=== PATIENT | male | born 1940 | race Caucasian/White ===

== ENCOUNTER → 2020-11-17 13:37 | Outpatient (CLI) | payer MEDICARE, OTHER, SELFPAY ==
--- NOTE | 2020-11-17 | DI.CT.S_ITS ---
PROCEDURE: CT LUMBAR SPINE WO CON INDICATIONS: Spinal stenosis, lumbar region TECHNIQUE: Noncontrast 3 mm thick sections acquired from the T12 level to the sacrum. Sagittal and coronal reformats were constructed. For radiation dose reduction, the following was used: automated exposure control. COMPARISON: Amanda Kwon, , MR LUMBAR SPINE W&WO CON, 06/18/2015, 15:18. FINDINGS: Image quality: Excellent. Bones: There are interbody spacer grafts at L1-2, L2-3 and L3-4 with discectomy and fusion with graft incorporation at L4-5. Posterior vee and screw instrumentation at L3-4 is present without hardware failure or loosening. L5 decompressive laminectomy present. T12-L1: Severe disc space narrowing with endplate sclerosis and posterior osteophyte is associated with hypertrophic facet joints resulting in moderate central and severe left foraminal stenosis. Moderate right foraminal stenosis present. L1-L2: Discectomy and fusion with spacer grafts in place. Posterior osteophyte results in moderate central stenosis. Hypertrophic facet joints result in moderate right and left foraminal stenosis. L2-L3: Discectomy and fusion with spacer grafts in place. Posterior osteophyte with hypertrophic facet joints and ligamentum flavum laxity resulting in moderate central stenosis. Moderate bilateral foraminal stenosis noted. L3-L4: Discectomy and fusion with graft in place. Persistent lucency through the disc space is noted. In posterior osteophyte and hypertrophic facet joints result in moderate central and severe left foraminal stenosis. Moderate right foraminal stenosis present. L4-L5: There has been discectomy and fusion with good graft incorporation. Posterior decompressive laminectomy noted. Hypertrophic facet joints with ankylosis present with mild to moderate bilateral foraminal stenosis. L5-S1: Disc space narrowing with vacuum disc phenomena and circumferential disc bulge present. Small amount of vacuum disc air is present in the right lateral recess as well. L5 decompressive laminectomy is noted. Central canal is widely patent. Hypertrophic facet joints present with mild bilateral foraminal stenosis. Soft tissues: No retroperitoneal masses or hematomas. Visualized aorta is normal in caliber. Retroperitoneal surgical clips present. IMPRESSION: 1. Discectomy infusion L1-2 through L4-5. Persistent lucency present at the L3-4 disc space. L3-4 vee and screw instrumentation. No evidence of hardware failure or loosening. 2. Multilevel degenerative disc disease and arthropathy results in varying degrees of central and foraminal stenosis as above Dictated by: Ej Mendes M.D. on 11/17/2020 at 15:41 Approved by: Ej Mendes M.D. on 11/17/2020 at 16:24
== END ==
PROVIDERS: Referring Provider Orthopaedic Surgery Orthopaedic Surgery of the Spine; Visit Provider Orthopaedic Surgery Orthopaedic Surgery of the Spine
DX: M48.062 Spinal stenosis, lumbar region with neurogenic claudication (principal); M51.36 Other intervertebral disc degeneration, lumbar region; M51.37 Other intervertebral disc degeneration, lumbosacral region; M47.816 Spondylosis without myelopathy or radiculopathy, lumbar region; M48.061 Spinal stenosis, lumbar region without neurogenic claudication; M48.07 Spinal stenosis, lumbosacral region; Z98.1 Arthrodesis status; Z20.822 Contact with and (suspected) exposure to COVID-19
CPT/HCPCS: 72131; 87635; C9803

== ENCOUNTER → 2020-11-17 14:07 | Outpatient (CLI) | payer MEDICARE, OTHER, SELFPAY ==
[2020-11-17 15:23] LABS: COVID19 -Nasal RAPID Negative (Negative)
== END ==
PROVIDERS: Visit Provider Physician Assistant
DX: Z20.822 Contact with and (suspected) exposure to COVID-19 (principal)
CPT/HCPCS: 87635

== ENCOUNTER 2020-11-18 11:42 | Inpatient (IN) | payer MEDICARE, OTHER, SELFPAY ==
[2020-11-10 13:52] VITALS: BMI 34.2
[2020-11-18] VITALS (11 sets, daily range): BP systolic 123–157; BP diastolic 66–98; PULSE 79–94; RESP 14–18; TEMP 36.3–36.8; O2SAT 90–98; BMI 33.2
--- NOTE | 2020-11-18 | DI.RAD.S_ITS ---
PROCEDURE: XR LUMBAR SPINE 2-3V INDICATIONS: L5-S1 TLIF TECHNIQUE: 2 views of the lumbar spine were acquired. COMPARISON: [facility], CT, CT LUMBAR SPINE WITHOUT CONTRAST, 05/05/2020, 13:05. [facility], CT, CT LUMBAR SPINE WO CON, 11/17/2020, 14:46. FINDINGS: Bones: Postoperative evaluation showing new placement of L5-S1 bilateral transverse pedicle screws and vertical fixation rods. Previously documented L3-L4 transverse pedicle screws set at the inferior aspect of the prior fixation is included on the field of view lateral projection, and 1 of the 2 transverse pedicle screws at this lower set of original fixation devices is fractured. On the frontal projection the transverse pedicle screws set of the original fixation devices can be seen but the exact screw which is fractured, right versus left, is not identified. The new L5-S1 transverse pedicle screws and vertical fixation rods are well visualized. There is an old set of vertical fixation rods are radiolucent. Soft tissues: Overlying bowel gas pattern is normal. No suspicious soft tissue calcifications. IMPRESSION: The new set of L5-S1 fixation devices appear normal. The original set of L3-L4 fixation devices were inter connected by 2 vertical radiolucent fixation rods. One of the 2 L4 original transverse pedicle screws is seen to be fractured on the lateral projection but this cannot be identified in terms of laterality on the frontal projection. On review of the CT dated 11/17/20 the L3 transverse pedicle screw on the right appears to represent the site of fracture. Dictated by: Timothy Simon M.D. on 11/19/2020 at 10:37 Approved by: Timothy Simon M.D. on 11/19/2020 at 10:55
[2020-11-18] MEDS: LACTATED RINGERS 1,000 ML 42 ML IV (12:19)
[2020-11-18] MEDS: GABAPENTIN 300 MG CAPSULE PO ×2 (12:38→21:19)
[2020-11-18] MEDS: ACETAMINOPHEN 325 MG TABLET 975 MG PO (12:38)
--- NOTE | 2020-11-18 13:16 | PM.PREOP ---
Pre-operative Note COVID-19 COVID-19 status: Negative Result date/Date tested (Pos, Neg/Pending): 11/16/20 Interval Note History & Physical reviewed/Exam performed by Physician: Yes Changes to H&P: No
[2020-11-18 13:30] LABS: Bacteria Urine None Seen; WBC Urine None Seen (0-5/HPF)
[2020-11-18 13:32] LABS: Appearance Urine UA CLEAR; Bilirubin Urine UA NEGATIVE (NEGATIVE); Color Urine UA YELLOW; Glucose Urine UA TRACE g/dL (Negative); Ketones Urine UA NEGATIVE (NEGATIVE); Leukocyte Esterase Urine UA NEGATIVE (NEGATIVE); Nitrite Urine UA NEGATIVE (Negative); Occult Blood Urine UA TRACE-INTACT (Negative); Protein Urine UA NEGATIVE (Negative); Specific Gravity Urine UA 1.025 (1.000-1.035); Urobilinogen Urine UA 0.2 E.U./dL (0.2)
[2020-11-18 14:02] LABS: Culture Indicated Urine Cult Not Indicated; RBC Urine 0-1/HPF (0-5/HPF)
[2020-11-18] MEDS: CEFAZOLIN 1 GM VIAL 2 GM IV ×2 (14:15→22:24)
--- NOTE | 2020-11-18 14:40 | SUR.OPER ---
Prone on spine table, head in foam head support, padded chest and pelvic supports, gel pad at knees, lower legs supported by pillows; nipples, genitalia and toes free of pressure, arms secured on foam padded arm boards at <90 degrees abduction. Tape over blanket at thigh secured to table.
[2020-11-18] MEDS: BUPIVACAINE LIPOSOME 266 MG/20 ML VIAL INJ (14:51)
[2020-11-18] MEDS: BUPIVACAINE 0.5% (PF) VIAL 30 ML INJ (14:52)
--- NOTE | 2020-11-18 17:47 | P.OP_ITS ---
Operative Date/Time/Diagnoses Date of procedure: 11/18/20 Time of procedure: 13:00 Pre-op diagnosis: 1. L5-S1 spinal stenosis with radiculopathy 2. Lumbar spondylosis with radiculopathy Post-op diagnosis: same Procedure & Clinicians Procedure: 1. L5-S1 Postero-lateral and posterior interbody fusion 2. L5-S1 interbody cage placement. 3. L5-S1 decompressive laminectomy with bilateral facetecomies 4. L5-S1 Posterior non-segmental instrumentation 5. [place] of bone marrow from iliac crest 6. Utilization of microsurgical technique and operating microscope Same procedure as scheduled: Yes Indications: Patient has been having chronic back pain and worsening lumbar radiculopathy. Patient failed multiple conservative management with worsening pain weakness and numbness in her lower extremity. Patient has been having difficulty performing activity of daily living. After discussing risks benefits of treatment options, patient elected proceed with surgery. Surgeon: David Smith Fisher Eel: Dionte Anderson Click Yes if Unassisted: No Anesthesia Type: General Operative Notes Closure Type: primary Specimen(s): none sent Prosthetic devices, grafts, tissues, transplants, or devices: Globus CREO MIS pedicle screws, Rise cage Estimated Blood Loss (mL): 50 Blood products transfused: none Procedure in detail: Patient was seen in the preoperative area. Risks and benefits of the surgery was discussed with the patient. Informed consent was obtained from the patient and placed in the chart. Surgical site was marked. Patient was taken to the operative room. General anesthesia was administered. Prophylactic antibiotic was given to the patient less than 30 min before the incision was made. Patient was placed into a prone position on the Angel table. Patient's back was then prepped and draped in the sterile fashion. Time- out was performed at this time. After patient was prepped and draped, patient's PSIS was palpated and marked bilaterally. Small 1 cm incision was made over the PSIS for placement of the reference probes. Two trocar was placed into the PSIS 1 on each side. The reference probe was attached to the trocar of the reference apparatus. At this time the C-arm imaging was used to confirm AP and lateral of L5-S1 vertebrae and merged the C-arm imaging using the [employer] robotic navigation system with the CT of the lumbar spine. After successful merging was completed and confirmed, skin marker was used to greg out the skin incision using the [employer] robotic arm. Bilateral incision was made at this time. Pre templated trajectory was used and guided using the [employer] robotic navigation system for bilateral L5-S1 pedicle screw placement. This was done by using the robotic arm to guide the high-speed bur to make a cortical entry point. Next a drill was placed also using the robotic arm and guided using the navigation system drilling partially through bilateral L5, S1 pedicles. Next L5-S1 pedicle screws it was pre templated and measured was placed onto the power refrigerated company driver and inserted into the pedicles bilaterally. After all 4 screws were placed C-arm imaging was taken of both AP and lateral to confirm the placement. Excellent placement of the screws were confirmed and a matched precisely with the pre planned screw placement using the navigation system. MARs retractor was inserted using [employer] guidence. Globus MARS retractors was placed inside the incision and docked onto the L5 lamina. Using microsurgical technique and operating microscope, a L5 laminectomy and L5-S1 facetectomy was performed using a Kerrison rongeur. Patient was found have severe lateral recess and neural foramen stenosis which was fully decompressed after the laminectomy facetectomy. More than 75% of the facets were removed during the process of decompression rendering L5-S1 level grossly unstable and required a fusion procedure at the same time. The disc space at L5-S1 was identified, and a total diskectomy was performed at L5-S1 level. The endplates were decorticated using a rasp and shaver. The total diskectomy and decortication was performed at L5-S1 level in order to to accomplish a L5-S1 fusion. The local bone from the laminectomy and facetectomy was saved for local bone grafting. After the total diskectomy and decortication was completed, Trifecta bone graft material was combined with local bone that was harvested earlier. At this time, a separate skin is incision was made over the iliac crest. A Jamshidi needle was inserted into the iliac crest through a separate skin incision. 5 cc of bone marrow aspiration was obtained through the separate skin incision using a Jamshidi needle from the iliac crest. The bone marrow aspiration was combined with local bone and the Trifecta bone grafting material. The bone grafting material was placed into the L5-S1 interbody space along with a expandable cage. The cage was expanded to its maximum height using the torque limiting screwdriver. The disc preparation as well as the cage insertion were also performed under navigation guidance. After the cage was placed, AP and lateral C-arm imaging was taken to confirm placement of the cage and excellent position was confirmed. Globus MARS retractor was inserted and docked onto the L5-S1 posterolateral gutter on the right side. Using the power drill, posterior-lateral decortication was performed at L5-S1 level until bleeding cortical bone was identified. The remaining bone grafting material was placed into the L5-S1 posterior lateral gutter he order to accomplish posterolateral fusion at the L5- S1 level. At this time the tulips were attached to the L5-S1 pedicle screw shanks. After measuring the length of the rods, they were inserted into the tulips of the pedicle screws and locked in place using locking caps and torque limiting screwdriver bilaterally. Total 4 caps and 2 titanium rods was used in order to complete the posterior instrumentation construct. After all the hardware was placed, and confirmed with AP and lateral C-arm imaging, the wound was then irrigated with sterile normal saline and packed with Ray-Collins gauze for 3 min to accomplish hemostasis. After the gauze was removed the deep fascia was closed with #1 Vicryl suture. The subcutaneous layer was closed with 2-0 Vicryl. The skin was closed with skin oj. Patient tolerated the procedure well. There were no complications. Neuro monitoring system was used to monitor patient's neurologic status throughout entire procedure. There was no disturbance of the neural monitoring signals throughout the case. Complications: none Post-operative Condition: stable Disposition: PACU Plan for aftercare: Admit to inpatient hospital
[2020-11-18] MEDS: PROPRANOLOL ER 60 MG CAPSULE 120 MG PO (18:12)
[2020-11-18] MEDS: OXYCODONE IR 5 MG TABLET PO (18:12)
--- NOTE | 2020-11-18 18:41 | SUR.PHASEI ---
pt to floor, bedside report to harmony, pt 92% on RA, dressing clean, dry, intact
[2020-11-18] MEDS: SODIUM CHLORIDE 0.9% 1,000 ML 100 ML IV (19:24)
[2020-11-18] MEDS: DOCUSATE 100 MG CAPSULE PO (21:16)
[2020-11-18] MEDS: SENNOSIDES 8.6 MG TABLET 17.2 MG PO (21:18)
[2020-11-18] MEDS: EZETIMIBE 10 MG TABLET PO (21:19)
[2020-11-19 00:35] VITALS: BP 112/65; PULSE 77; RESP 20; TEMP 36.6; O2SAT 95
[2020-11-19] MEDS: OXYCODONE/ACETAMINOPHEN 5/325 TABLET 2 TAB PO ×2 (04:32→11:28)
[2020-11-19 04:35] VITALS: BP 116/62; PULSE 75; RESP 18; TEMP 36.6; O2SAT 97
[2020-11-19] MEDS: CEFAZOLIN 1 GM VIAL 2 GM IV (06:14)
[2020-11-19] MEDS: SODIUM CHLORIDE 0.9% FLUSH 10 ML IV ×2 (06:14→08:30)
[2020-11-19 06:31] LABS: Hematocrit 41.6 % (41-53); Hemoglobin 13.9 g/dL (13.5-17.5)
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
[2020-11-19] MEDS: DOCUSATE 100 MG CAPSULE PO (08:32)
[2020-11-19] MEDS: OXYCODONE IR 5 MG TABLET PO (08:32)
[2020-11-19] MEDS: GABAPENTIN 300 MG CAPSULE PO (08:32)
[2020-11-19 09:01] VITALS: BP 119/74; PULSE 70; RESP 16; TEMP 37.1; O2SAT 95
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
[2020-11-19] MEDS: CELECOXIB 200 MG CAPSULE PO (10:13)
[2020-11-19] MEDS: PROPRANOLOL ER 60 MG CAPSULE 120 MG PO (10:34)
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
--- NOTE | 2020-11-19 12:53 | CM.IDA ---
Initial DCP Assessment Note Pt is a 79 yo male, resident of [facility], now POD#1 p L5-S1 TLIF w. instrumentation, ROBOT - David Smith MD PCP: Lazaro Molina Payer: [facility] Reviewed chart, pt discussed in multidisciplinary rounds this morning. Therapy has cleared pt for return home w/family to assist and pt has planned for home to his brother's , DC order from Ortho has already been initiated this morning. No needs expected from DC planning team although will remain available in case this changes today. SHERWIN Escobar
--- NOTE | 2020-11-19 13:40 | PC.NURSE ---
Pt received awake, alert and Ox3. Pleasant. VSS, afebrile on RA. States good pain control. Eating 100% of breakfast, good fluid intake. Pt also voiding adequate of clear, yellow urine w/o difficulty s/p hernandez removal. Pt cleared with PT/OT this a.m. and dressing to back with shadow drainage changed. Halima C/D/I. Per surgery and therapy patient cleared for discharge. Noted slight tremor pt reports at baseline and given propanolol per request. Also received orders for celebrex which patient takes at home. Pt 's brother arrived to escort patient home. Pt acknowledges understanding of activity, medications, wound care, worsening of symptoms and follow up. Pt escorted via wheel chair to private vehicle with brother, states he has all of his belonging and prescriptions.
== END 2020-11-19 13:00 | disposition home or self-care (01) | DRG 455 ==
LOC: OR 11:45 → AC 11:46
PROVIDERS: Admitting Provider Orthopaedic Surgery Orthopaedic Surgery of the Spine; PCP Family Medicine; Referring Provider Orthopaedic Surgery Orthopaedic Surgery of the Spine; Visit Provider Orthopaedic Surgery Orthopaedic Surgery of the Spine
PROC: 0SG30AJ Fusion of Lumbosacral Joint with Interbody Fusion Device, Posterior Approach, Anterior Column, Open Approach (ICD-10-PCS; principal; 2020-11-18 13:15)
DX: M48.07 Spinal stenosis, lumbosacral region (principal); M47.27 Other spondylosis with radiculopathy, lumbosacral region; E78.5 Hyperlipidemia, unspecified; Z20.822 Contact with and (suspected) exposure to COVID-19; G89.29 Other chronic pain; G25.0 Essential tremor; Z98.1 Arthrodesis status
CPT/HCPCS: 36415; 72100; 72131; 76000; 81001; 82962; 85014; 85018; 87635; 97116; 97161; 97165; 97530; C1776; C9803; C9290; J0690; J1100; J1170; J2405; J2704; J3010

== ENCOUNTER → 2021-03-15 13:44 | Outpatient (CLI) | payer MEDICARE, OTHER, SELFPAY ==
[2020-11-18 18:50] VITALS: BMI 33.2
[2021-03-15 14:56] LABS: COVID19 -Nasal RAPID Negative (Negative)
== END ==
PROVIDERS: PCP Family Medicine; Visit Provider Nurse Practitioner Family
DX: Z01.812 Encounter for preprocedural laboratory examination (principal); Z20.822 Contact with and (suspected) exposure to COVID-19
CPT/HCPCS: 87635; C9803

== ENCOUNTER → 2021-03-15 13:53 | Outpatient (CLI) | payer MEDICARE, OTHER, SELFPAY ==
[2020-11-18 18:50] VITALS: BMI 33.2
[2021-03-15 14:41] LABS: Add Manual Diff / Slide Review NO; Basophils Absolute Auto 0 /uL (0-100); Basophils Percent Auto 0.4 % (0-2); Eosinophils Absolute Auto 100 /uL (0-450); Eosinophils Percent Auto 2.3 % (2-4); Hematocrit 46.2 % (41-53); Hemoglobin 16.1 g/dL (13.5-17.5); Lymphocytes Absolute Auto 1500 /uL (1100-4500); Mean Corpuscular HGB Conc 34.9 % (30-36); Mean Corpuscular Hemoglobin 31.4 PG (26-34); Monocytes Absolute Auto 600 /uL (0-900); Neutrophils Absolute Auto 3000 /uL (1500-7000); Neutrophils Percent Auto 56.3 % (50-75); Platelet Count 143 X10^3/uL (150-400); Red Blood Cell Count 5.13 X10^6/uL (4.5-5.9); White Blood Cell Count 5.3 X10^3/uL (4.5-11.0)
[2021-03-15 14:57] LABS: BUN Creatinine Ratio 20.5 (6-22); Blood Urea Nitrogen 15 mg/dL (9-20); Carbon Dioxide 29 mmol/L (22-32); Chloride 103 mmol/L (98-107); Estimated Glomerular Filt Rate > 60.0 mL/min (>60); Glucose 86 mg/dL (80-110); HEMOLYSIS 15 (0-50); Potassium 4.4 mmol/L (3.4-5.1); Sodium 138 mmol/L (137-145)
== END ==
PROVIDERS: PCP Family Medicine; Referring Provider Orthopaedic Surgery Orthopaedic Surgery of the Spine; Visit Provider Orthopaedic Surgery Orthopaedic Surgery of the Spine
DX: Z01.812 Encounter for preprocedural laboratory examination (principal)
CPT/HCPCS: 36415; 80048; 85025

== ENCOUNTER 2021-03-18 14:16 | Inpatient (IN) | payer MEDICARE, OTHER, SELFPAY ==
[2020-11-18 18:50] VITALS: BMI 33.2
[2021-03-15 09:16] VITALS: BMI 34.2
[2021-03-17] VITALS (12 sets, daily range): BP systolic 130–151; BP diastolic 69–88; PULSE 73–89; RESP 10–18; TEMP 36.3–36.9; O2SAT 92–96; BMI 34.2
--- NOTE | 2021-03-17 | DI.RAD.S_ITS ---
PROCEDURE: XR LUMBAR SPINE 2-3V INDICATIONS: L5-S1 LUMBER HWR,EXPLORATION OF FUSION, REPEAT LAMINECTOMY TECHNIQUE: 2 intraoperative views of the lumbar spine were acquired. COMPARISON: [facility], , XR LUMBAR SPINE 2-3V, 11/18/2020, 17:10. FINDINGS: Lumbosacral fusion hardware is present.. IMPRESSION: Postsurgical sequelae. Dictated by: Alisa Sanches M.D. on 03/17/2021 at 17:28 Approved by: Alisa Sanches M.D. on 03/17/2021 at 17:28
[2021-03-17] MEDS: LACTATED RINGERS 1,000 ML 42 ML IV ×2 (14:32→16:27)
--- NOTE | 2021-03-17 15:32 | PM.PREOP ---
Pre-operative Note COVID-19 COVID-19 status: Negative Result date/Date tested (Pos, Neg/Pending): 03/15/21 Interval Note History & Physical reviewed/Exam performed by Physician: Yes Changes to H&P: No
[2021-03-17] MEDS: CEFAZOLIN 1 GM VIAL 2 GM IV ×2 (16:05→23:40)
[2021-03-17] MEDS: BUPIVACAINE 0.25% (PF) 30 ML, EPINEPHrine 0.3 MG INJ (16:11)
[2021-03-17] MEDS: BUPIVACAINE LIPOSOME 266 MG/20 ML VIAL INJ (16:34)
--- NOTE | 2021-03-17 17:35 | PM.OP.1 ---
Operative Date/Time/Diagnoses Date of procedure: 03/17/21 Time of procedure: 15:00 Pre-op diagnosis: 1. 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 L3-4, L4-5, L5-S1 posterior segmental instrumentation removal 2. Revision L3-4, L4-5 hemilaminectomy on the right 3. Posterolateral fusion L3-4, L4-5, L5-S1 4. L3-4, L4-5, L5-S1 posterior instrumentation L3-4, L4-5, L5-S1. Same procedure as scheduled: Yes Indications: Patient has been having chronic back pain and worsening lumbar radiculopathy. Patient is 3 months status post L5-S1 transforaminal lumbar interbody fusion with instrumentation. Patient complained of progressively worsening back pain over the last [address] shows bilateral S1 screw loosening correlating with the patient's significant buttock pain and back pain. Patient also has [place] and right-sided pain in the mid lower back correlating with broken L4 pedicle screw indicating pseudoarthrosis at the L3-4 level. Patient failed multiple conservative management with worsening pain weakness and numbness in his lower extremity. Patient has been having difficulty performing activity of daily living. After discussing risks benefits of treatment options, patient elected proceed with surgery. Surgeon: David Smith Carpet Floor Layer Apprentice: Zulma Humphrey Click Yes if Unassisted: No Anesthesia Type: General Operative Notes Closure Type: primary Specimen(s): none sent Prosthetic devices, grafts, tissues, transplants, or devices: Globus CREO MIS screws Estimated Blood Loss (mL): 50 Blood products transfused: none Procedure in detail: Patient was seen in the preoperative area. Risks and benefits of the surgery was discussed with the patient. Informed consent was obtained from the patient and placed in the chart. Surgical site was marked. Patient was taken to the operative room. General anesthesia was administered. Prophylactic antibiotic was given to the patient less than 30 min before the incision was made. Patient was placed into a prone position on the Angel table. Patient's back was then prepped and draped in the sterile fashion. Time-out was performed at this time. Using patient's previous scar incision was made over the L3-4 L4-5 L5-S1 interval on the right side. Fascia was incised in line with skin incision. Patient's previously placed hardware over the L3-4 L4-5 L5-S1 level was identified by dissecting down to the level the hardware using a Bovie and a Oakley. The locking caps which was removed using globus screwdriver. The locking vee was then removed from the [place] of the pedicle screws using a Esther. The pedicle screws were then removed using the screwdriver. The screws were found to have gross loosening at L3 and S1 pedicles. The Globus and MARS retractors was then placed into the wound and docked onto the L3-L4 L5 lamina using C-arm guidance. Using microsurgical technique and operating microscope a hemilaminectomy at the L3-4 L4-5 level. The fusion mass was inspected L3-4 L4-5 level. There was visible motion indicating pseudoarthrosis at L3-4 L4-5 level. Cannulated screws were inserted into the L3 and S1 pedicles along with non cannulated screw placed into the L5 pedicle along with reduction sleeves. L4 pedicle screw on the right was confirmed to be broken wants this removed this was identified on the CT scan prior to surgery. The plan was to not remove the broken tip of the L4 pedicle screw since he will cause too much bony injury and potential bleeding. A titanium vee was locked into the L3-L4 and S1 pedicle screw tulips using locking caps and torque limiting screwdriver. Solid purchase of all 3 screws were identified. At this time a mirror image incision was made on the left side. The fascia was incised in line with the skin incision. Patient's previously placed hardware on the left side was then removed in the same fashion as it was on the right side at L5-S1 level The hardware was also found to have good purchase at L5 but with grossly loosened at S1 pedicle on the left side. Globus MARS retractor was inserted and docked onto the L3-4 L4-5 L5-S1 posterolateral gutter. Using the power drill, posterior-lateral decortication was performed at L3-4 L4-5 L5-S1 level until bleeding cortical bone was identified. The remaining bone grafting material was placed into the L3-4 L4-5 L5-S1 posterior lateral gutter he order to accomplish posterolateral fusion at the L3-4 L4-5 L5-S1 level. Cannulated S1 screw was placed into the left pedicle which was found to have good purchase. And a solid screw was placed into the left L5 pedicle which also had good purchase. Reduction sleeve was installed and a Titan vee was locked into the [place] on the left side using locking caps and torque limiting screwdriver in the similar fashion as the right side. All hardware placed were solid. After all the hardware was placed, and confirmed with AP and lateral C-arm imaging, the wound was then irrigated with sterile normal saline and packed with Ray-Collins gauze for 3 min to accomplish hemostasis. After the gauze was removed the deep fascia was closed with #1 Vicryl suture. The subcutaneous layer was closed with 2-0 Vicryl. The skin was closed with skin oj. Patient tolerated the procedure well. There were no complications. Complications: none Post-operative Condition: stable Disposition: PACU Plan for aftercare: Admit to inpatient hospital
[2021-03-17] MEDS: fentaNYL 100 MCG/2 ML INJ IV (18:06)
[2021-03-17] MEDS: OXYCODONE/ACETAMINOPHEN 5/325 TABLET 1 TAB PO (18:08)
[2021-03-17] MEDS: SODIUM CHLORIDE 0.9% 1,000 ML 100 ML IV (19:44)
[2021-03-17] MEDS: OXYCODONE IR 5 MG TABLET 10 MG PO (19:45)
[2021-03-17] MEDS: DOCUSATE 100 MG CAPSULE PO (21:14)
[2021-03-17] MEDS: EZETIMIBE 10 MG TABLET PO (21:14)
[2021-03-17] MEDS: SENNOSIDES 8.6 MG TABLET 17.2 MG PO (21:14)
[2021-03-17] MEDS: GABAPENTIN 300 MG CAPSULE PO (21:14)
[2021-03-17] MEDS: ACETAMINOPHEN 325 MG TABLET 650 MG PO (23:40)
[2021-03-17] MEDS: hydrOXYzine pamoate 25 MG CAPSULE PO (23:40)
[2021-03-18] MEDS: OXYCODONE IR 5 MG TABLET 10 MG PO ×3 (02:56→14:03)
[2021-03-18] MEDS: HYDROMORPHONE 0.5 MG INJ IV ×2 (03:48→20:55)
[2021-03-18 03:58] VITALS: BP 121/71; PULSE 89; RESP 18; TEMP 36.8; O2SAT 93
--- NOTE | 2021-03-18 05:09 | PC.NURSE ---
right surgical dressing saturated, left scant drainage. reinforced per orders.
[2021-03-18] MEDS: SODIUM CHLORIDE 0.9% 1,000 ML 100 ML IV (05:57)
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
[2021-03-18 08:45] VITALS: BP 132/71; PULSE 94; RESP 17; TEMP 36.9; O2SAT 94
[2021-03-18] MEDS: CEFAZOLIN 1 GM VIAL 2 GM IV (09:09)
[2021-03-18] MEDS: DOCUSATE 100 MG CAPSULE PO ×2 (09:09→20:45)
[2021-03-18] MEDS: GABAPENTIN 300 MG CAPSULE PO ×3 (09:10→20:45)
[2021-03-18 10:14] LABS: Hematocrit 44.2 % (41-53); Hemoglobin 14.9 g/dL (13.5-17.5)
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
--- NOTE | 2021-03-18 11:03 | CM.DANOTE ---
Patient is a 80 yo male who was admitted on 03/17/21 for TLIF. Pt has [facility] and [place] for insurance and his PCP is Lazaro Oliveros. EMR was reviewed. Per Ortho MD, pt tolerated procedure well and has some pain management issues and to work with PT/OT with likely d/c in 1-2 days if stable. PT/OT pending. SW met bedside with pt and explained role right as OT about to begin initial eval and pt confirms that he still lives at home alone in [place] and is independent at baseline with ADL's and drives and denies any hx of HH or SNF. Pt was last admitted in November 2020 this year for similar with Dr. Smith and was able to d/c home to local brother's house for assist and outpt f/u but had ongoing pain issues and now back for surgical intervention. Pt confirms that his plan is to again d/c to his brother's house for a couple weeks and then if needed his sister can stay with him for additional assist. Pt states his sister called for additional assist in the home for pt after surgery and ended up calling [employer]PS who called pt stating they could provide him with additional resources in case he needs an in-home CG set up but pt states he does not anticipate that he will need that. Per OT, after initial eval pt had some pain issues but can likely safely d/c home to brother's house for assist and outpt f/u with Ortho. Plan: SW to follow closely for further PT/OT to confirm safe plan of d/c to brother's house for assist at discharge and any further identified discharge planning needs. SHERWIN Crowell Discharge Planning/Care Management Advanced directive, confirm from FAMILY Start: 03/17/21 19:15 Freq: Q24H Status: Active Protocol: Document 03/17/21 19:15 [facility] (Rec: 03/17/21 19:16 [facility] [id number]) Advance Directive, confirm on record Time 19:16 Person contacted family to bring in. Copy received No CM Discharge Assessment Start: 03/18/21 11:01 Freq: Status: Active Protocol: Document 03/18/21 11:01 [facility] (Rec: 03/18/21 11:03 [facility] [id number]) Discharge Planning Assessment Assigned Rn Plastic Surgery SHERWIN Murdock DPOA/Assigned Designee Name brother Deshawn Advance Directives? Yes Advance Directives on File No: Unsure of wherabouts History Provided By Patient,Medical Record Prior Living Arrangements House Household Members none Type of transporation used prior to Drives own vehicle admit Independent with ADL's Yes Is patient alert and oriented? Yes Caregiver for Another No Community Services used prior to Physical Therapy admission: DME Already Rented / Owned FWW / Walker Patient/Family Preference OP PT Therapy Barriers to Discharge No Discharge Plan Home Community Services Physical Therapy Transportation Arrangement Brother Deshawn to transport at d/c Referrals Initiated None needed Review Status In Process Please Provide Date Initial DC 03/18/21 Assessment Was Performed Next Review Type Continued Stay Review Pre-Anesthesia Assessment Start: 03/15/21 09:16 Freq: Status: Active Protocol: Document 03/15/21 09:16 [facility] (Rec: 03/15/21 09:38 [facility] [id number]) Pre-Anesthesia Assessment PAC Comment Pt is s/p L5-S1 TLIF 11/18/20. Pt states that he has problems with dissolvable sutures - they do not dissolve Patient Information Reviewed Via Chart Review Comment Pre-op Labs/EKG not identified , COVID screen @ 03/15/21 Primary Care Provider Lazaro Molina Seen Specialist in Last 12 Months Yes Specialist Seen Manager Of Training And Development,Opthamologist/ Polishing Machine Tender,Orthopedist Primary Language Swedish Preferred Language Swedish [place] Worker Helper Required No Height 172.72 cm Weight 102.058 kg Body Mass Index (BMI) 34.2 Hearing Ability Hard of Hearing Visual Assist Glasses Dentition Type Teeth, Missing Barriers to Learning Auditory Hx Anesthesia Reactions No: INDIRA per PCP note, pt did not report during PAC assess Hx Family Anesthesia Reaction No Hx Malignant Hyperthermia No Hx Blood Transfusions No Hx Blood Transfusion Reaction No Anesthesia Review Requested No alcohol intake current alcohol intake frequency a few times a week Smoking Status Never smoker Substance Use Type does not use Pain Present Pain Reported Musculoskeletal Symptoms Abnormal Gait,Back Pain, Difficulty Walking,Joint Pain, Numbness,Radiating Pain into Limb History of Falling (Recent or History of No ) Patient is completely paralyzed or No completely immobile Prosthesis or Orthotic Device Front Wheel Walker Mental Status Oriented to own ability Is patient on oxygen? No Does patient have GARCIA/SOB No Hx Sleep Apnea Yes: INDIRA per PCP note, pt did not report during PAC assess CPAP/BIPAP use not prescribed Currently Taking a Beta Odette Yes: Propranolol for tremor Hx Chest Pain No Hx SOB No Hx Syncope or Dizziness No Anti-Coagulant Therapy No Has a Government Service Executive No Cardiac Testing No Hx Pacemaker/ICD No Pacemaker Rep Required? No Diet Type At Home Regular dysphagia No Gastrointestinal Symptoms Constipation Genitourinary Symptoms Dribbling Bladder Pattern Urgency Urinary Catheter Present No Hx Urinary Self Catheterization No Diabetes No Presence of External or Internal Medical Yes: lumbar, cervical, wrist, Devices eyes Marital Status Lives With none Prior Living Arrangements House Number of Floors (Floors) One Floor Support System Friend(s) Patient Discharge Plan Description Return Home Feels Safe in Current Environment Yes Been Physically Hurt or Threatened By a No Person in Current Environment Do you have thoughts of harming yourself None or others? Are you currently considering suicide? No Do you have a plan to hurt yourself or No Plan others? Do You Have Any Spiritual Beliefs That No May Affect Your HC Choices? Do You Have Any Cultural Practices That No May Affect Your HC Choices? Who Can We Speak to About Patient's Care Family, friends Identifying Code for Release of Patient Declines to issue Information Health Care Proxy/Next of Kin Deshawn (brother) Health Care Proxy Emergency Contact Name Deshawn (brother) Emergency Contact Advance Directives? Yes Advance Directives on File No: Unsure of trevin Power of Mine Shifter Name Deshawn (brother) Power of Mine Shifter
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
[2021-03-18 12:20] VITALS: BP 142/84; PULSE 93; RESP 18; TEMP 36.8; O2SAT 94
--- NOTE | 2021-03-18 15:20 | PT.IPTN ---
Current Diagnoses Other mechanical complication of other internal orthopedic devices, implants and grafts, initial encounter (03/18/21) Surgery Performed Operation Date: 03/17/21 15:15 Actual Procedures p L5-S1 lumbar HWR, exploration of fusion, repeat laminectomy, reinsertion of hardware(Not Applicable) - David Smith MD Physical Therapy Treatment Note M2 PT-IP Current Condition Start: 03/18/21 13:15 Freq: NEEDED Status: Active Protocol: Document 03/18/21 11:30 AB (Rec: 03/18/21 13:25 AB [email or web address]) Physical Therapy Current Condition Current Condition Evaluation Date 03/18/21 Treatment Diagnosis s/p L3-4, L4-5, L5S1 TLIF; difficulty in walking Onset Date 03/17/21 M3 PT-IP Subjective Start: 03/18/21 13:15 Freq: NEEDED Status: Active Protocol: Document 03/18/21 14:48 KS (Rec: 03/18/21 15:52 KS [id number]) Subjective Physical Therapy Visit Type Type Treatment Note Visit Start Time 14:48 Visit Stop Time 15:20 Total Visit Minutes 32 Number of NP Visits 1 Physical Therapy Visit Comments Patient Comments pt is agreeable to do PT M4 PT-IP Mobility and Gait Start: 03/18/21 13:15 Freq: NEEDED Status: Active Protocol: Document 03/18/21 14:48 KS (Rec: 03/18/21 15:52 KS [id number]) PT-Bed Mobility Assessment Supine to Sit Supine to Sit Moderate Assistance,1 Person Assistance PT-Transfer Assessment Sit to and From Stand Sit to and from Stand Minimal Assistance,1 Person Assistance,Use of Upper Extremities Equipment Transfer Assistive Device Gait Belt,Front Wheeled Walker Orthotic/Prosthetic Devices or Brace: No Transfers Transfer Destination Chair,Toilet Transfer Technique ambulated using FWW Transfer Ability Level of Assist Minimal Assistance,1 Person Assistance,Use of Upper Extremities Comments Mobility Comments Pt sidelying in bed upon arrival from therapy. Required Mod A this PM for sidelying to sit. Once sitting EOB, pt became shaky and stated he felt cold. BP: 132/76, RN took temperature at 99.3 and notified PA of shaking. Pt requested to use bathroom, denied dizziness or lightheadedness. Min A for sit <>stand, CGA for ~15 ft ambulation from bed to toilet w/ FWW and stand<>sit on toilet. Min A for sit<>Stand from toilet and CGA for ambulation back to chair. Once seated, pt completed 1x10 ankle pumps, quad sets, and glute sets to promote blood flow and strengthening. Pt reported fatigue and confusion since he was more mobile this AM. Pt left in chair w/ all needs in reach. Gait Assessment Gait Gait Assistance Required: Contact Guard Assist Distance (Feet) 20 Able to Maintain Weight Bearing Status Yes During Gait Assistive Devices Assistive Device Gait Belt,Front Wheeled Walker Orthotic/Prosthetic Devices or Brace: No Gait Deviations General Gait Pattern Decreased Stride Length, Decreased Feet Clearance Factors Limiting Gait Function Factors Limiting Gait Function Decreased Activity Tolerance, Decreased Strength,Limited Range of Motion,Pain,Poor Balance,Poor Safety Awareness Comments Gait Comments Pt ambulated ~20 ft total w/ FWW CGA. Demonstrated safe use of FWW. PT-Balance Assessment Sitting Balance and Reactions Static Sitting Balance Ability Good Dynamic Sitting Balance Ability Good Standing Balance and Reactions Static Standing Balance Ability Fair Dynamic Standing Balance Ability Fair Device Used FWW M5 PT-IP Objective Assessments Start: 03/18/21 13:15 Freq: NEEDED Status: Active Protocol: Document 03/18/21 11:30 AB (Rec: 03/18/21 13:25 AB [email or web address]) Orientation Orientation/Cognition Level of Alertness Alert Orientation Name,Place,Situation Language Function Ability Hard of Hearing Safety Awareness Decreased Safety Awareness Memory Description No Deficits Noted Gross Range of Motion Lower Extremity ROM Assessment Within Functional Limits Strength Lower Extremity Strength Assessment Within Functional Limits Coordination Assessment Gross Coordination Gross Coordination WNL Sensation Assessment Sensation Sensation Description Numbness Comments Sensation Comments R big toe numbness Muscle Tone Muscle Tone WNL Yes M6 PT-IP Treatment Start: 03/18/21 13:15 Freq: NEEDED Status: Active Protocol: Document 03/18/21 14:48 KS (Rec: 03/18/21 15:52 KS [id number]) Physical Therapy Treatment Exercises Exercises Ankle Pumps,Gluteal Sets,Quad Sets Education Education Provided Precautions,Weight Bearing Status,Safety M7 PT-IP Assessment and Plan Start: 03/18/21 13:15 Freq: NEEDED Status: Active Protocol: Document 03/18/21 14:48 KS (Rec: 03/18/21 15:52 KS [id number]) PT Summary Assessment and Plan Potential Rehabilitation Potential Good Status of Condition at Evaluation Stable Summary Impairments Pain,ROM,Strength,Balance, Coordination,Sensation,Tone, Cognition,Bed Mobility, Transfers,Gait,Activity Tolerance Assessment Summary Pt required increased assist this PM and was shaky throughout treatment. BP and blood sugar normal, temperature 99.3. Mod A for sidelying<>sit, Min A for sit< >stand w/ FWW, CGA for short bout of ambulation. Pt able to tolerate LE exercises for blood flow and strengthening. Will continue to monitor pts progress, but anticipate he will be safe to return home to his brother's house when medically stable. Goals Bed Mobility Goal Independent Transfer Goal Independent,Front Wheeled Walker Gait Goal Independent,Front Wheel Walker Gait Distance 250 Other Goals up/down 1 step using fWW mod I Days to Meet Goals 5 Frequency of Treatment Frequency Of Treatment Twice a Day Treatment Plan Physical Therapy Treatment Plan Bed Mobility Training,Transfer Training,Gait Training, Therapeutic Exercise,Balance Retraining,Post Op Education, Discharge Planning,Hot or Cold Pack,Neuromuscular Re-ed, Coordination Retraining,Manual Therapy Other Recommendations and Next Treatment ambulation, stair climbing Focus Precautions Lumbar Precautions Log Roll,No Twisting,Limit Bending,Lifting Restriction of 10 lbs,Gait Belt above Incisional Area Recommendations To Nursing Amount of Assist Needed 1 Person Assist Discharge Recommendations PT Discharge Recommendations Home with Assistance Transportation Needs at Discharge Private Vehicle
--- NOTE | 2021-03-18 15:22 | PC.NURSE ---
Addendum entered by Pam Cardona R.N. 03/18/21 18:45: Jhonatan Sim phoned back earlier and gave orders for propanolol, which he takes for tremors and he has not had this for a couple of days, he was also given valium and this has been helpful for patient. He ate and is resting comfortably Addendum entered by Pam Cardona R.N. 03/18/21 15:30: Patient started to shake again. Called Jhonatan Sim and awaiting a call back to see if any new orders. Addendum entered by Pam Cardona R.N. 03/18/21 15:29: 11- Patient is working with therapy and tolerating well, he still had a bit of shaking but this has resolved. Original Note: 0700- Patient is alert and oriented x3, he was complaining of 9/10 pain. Given 10mg of oxycodone and helpful. Patient has been shaking on and off this shift. His temp is 99.3. He states that he does have some tremors, the hospital has been rather cold today and he states that he is also cold. Shaking possibily from being cold. Otherwise he is has been moving well with walker, gaitbelt, and one person assist.
[2021-03-18 15:35] VITALS: BP 142/84; PULSE 101; RESP 17; TEMP 36.7; O2SAT 95
[2021-03-18] MEDS: PROPRANOLOL ER 60 MG CAPSULE 120 MG PO (16:00)
[2021-03-18] MEDS: diazePAM 5 MG TABLET PO (16:01)
[2021-03-18 20:32] VITALS: BP 116/69; PULSE 92; RESP 18; TEMP 37.6; O2SAT 93
[2021-03-18 20:45] VITALS: TEMP 37.5
[2021-03-18] MEDS: EZETIMIBE 10 MG TABLET PO (20:45)
[2021-03-18] MEDS: ACETAMINOPHEN 325 MG TABLET 650 MG PO (20:45)
[2021-03-18] MEDS: SENNOSIDES 8.6 MG TABLET 17.2 MG PO (20:45)
[2021-03-18] MEDS: hydrOXYzine pamoate 25 MG CAPSULE PO (20:45)
[2021-03-19] VITALS (8 sets, daily range): BP systolic 112–132; BP diastolic 64–87; PULSE 74–91; RESP 16–20; TEMP 36.6–38.1; O2SAT 93–96
[2021-03-19] MEDS: OXYCODONE IR 5 MG TABLET 10 MG PO (05:33)
[2021-03-19] MEDS: hydrOXYzine pamoate 25 MG CAPSULE PO (05:33)
[2021-03-19] MEDS: ACETAMINOPHEN 325 MG TABLET 650 MG PO ×2 (05:40→16:35)
--- NOTE | 2021-03-19 05:55 | PC.NURSE ---
patient exhibiting low-grade fever throughout shift. 2031 - 99.6 F 0318 - 97.8 F 0541 - 100.5 F acetaminophen administered, ice packs and cool wash clothes applied. IS at bedside and education provided. diaphoresis and chills not present. severe pain throughout shift. patient states every part of me feels like it hurts, even my hair. patient resting comfortably after cooling measured applied.
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
[2021-03-19] MEDS: GABAPENTIN 300 MG CAPSULE PO ×3 (09:28→21:24)
[2021-03-19] MEDS: DOCUSATE 100 MG CAPSULE PO ×2 (09:29→21:25)
[2021-03-19] MEDS: HYDROMORPHONE 2 MG TABLET PO ×3 (09:30→21:24)
--- NOTE | 2021-03-19 09:35 | OT.IP.TRT ---
Current Diagnoses Other mechanical complication of other internal orthopedic devices, implants and grafts, initial encounter (03/18/21) Surgery Performed Operation Date: 03/17/21 15:15 Actual Procedures p L5-S1 lumbar HWR, exploration of fusion, repeat laminectomy, reinsertion of hardware(Not Applicable) - David Smith MD Occupational Therapy Treatment Note M2 OT-IP Current Condition Start: 03/18/21 12:50 Freq: Status: Active Protocol: Document 03/18/21 10:12 [facility] (Rec: 03/18/21 13:18 [facility] [id number]) Occupational Therapy Current Condition Current Condition Evaluation Date 03/18/21 Treatment Diagnosis S/p L3-S1 lumbar HWR, exp fusion, repeat laminectomy Diagnosis Onset Date 03/17/21 Post Operative Precautions Lumbar Precautions Log Roll,No Twisting,Limit Bending,Lifting Restriction of 10 lbs,Gait Belt above Incisional Area M3 OT- IP Subjective and Pain Start: 03/18/21 12:50 Freq: Status: Active Protocol: Document 03/19/21 10:09 [facility] (Rec: 03/19/21 10:16 [facility] [id number]) OT- Subjective Occupational Therapy Visit Type Type Treatment Note Visit Start Time 09:08 Visit Stop Time 09:35 Total Visit Minutes 27 Occupational Therapy Visit Comments Patient Comments Pt wanting to get up to use the bathroom. Patient/Caregiver Goals To go to his brother's house initially. OT Pain Assessment Pain When Pain Assessed At Rest Pain Present Pain Present Pain Reported Location back Intensity 8 Scale Used Numeric (0 - 10) M4 OT- IP ADL's Start: 03/18/21 12:50 Freq: Status: Active Protocol: Document 03/19/21 10:09 [facility] (Rec: 03/19/21 10:16 [facility] [id number]) OT CNG-Wjjm-Ymcldpu General Evaluation Self-Feeding Ability Independent OT ADL-Grooming General Evaluation Grooming Ability Standby Assistance Comments OT Grooming Comments Able to do with FWW in front of him. OT ADL-Oral Care General Eval Oral Care Ability Standby Assistance Comments Oral Care Comments VC to spit into a cup to best follow his back precautions. OT ADL-Dressing Comments OT Dressing Comments Pt has all adaptive equipment at home to assist for LB dressing needs. OT ADL-Toileting General Evaluation Toileting Ability Standby Assistance Comments OT Toileting Comments Pt able to sit on the toilet to urinate and do his brief management needs on his own. OT ADL-Bathing Comments OT Bathing Comments Not performed, to do tomorrow if pt still here. M5 OT- IP IADL's Start: 03/18/21 12:50 Freq: Status: Active Protocol: Document 03/18/21 10:12 [facility] (Rec: 03/18/21 13:18 [facility] [id number]) OT-Instrumental Activities of Daily Living Home Safety Awareness Awareness of Need for Assistance at Home Good Awareness Ability to Problem Solve Emergency Able to Problem Solve Situations Home Safety Comments Pt to stay with his brother's house initially. M6 OT- IP Functional Cognition Start: 03/18/21 12:50 Freq: Status: Active Protocol: Document 03/19/21 10:09 [facility] (Rec: 03/19/21 10:16 [facility] [id number]) Cognitive Factors Limiting Selfcare Function Cognitive Ability Safety Awareness Decreased Ability to Apply Precautions,Underestimates Need for Assistance Cognitive Comments Cognitive Assessment Comments Pt needing cues today to follow log rolling and wanting to twist to get up. M7 OT- IP Mobility and Balance Start: 03/18/21 12:50 Freq: Status: Active Protocol: Document 03/19/21 10:09 [facility] (Rec: 03/19/21 10:16 [facility] [id number]) OT- Bed Mobility Assessment Rolling Type of Rolling Roll to Right Level of Assistance Moderate Assistance Supine to Sit Supine to Sit Assist Maximum Assistance OT-Transfer Assessment Sit to and From Stand Sit to and from Stand Moderate Assistance Transfers Transfer Ability Contact Guard Assistance Technique Transfer Destination Bed,Chair,Toilet Transfer Technique Stand Step Pivot Devices Transfer Assistive Devices Gait Belt,Front Wheeled Walker Comments Mobility Comments Pt needing more assist with bed mobility needs today. Pt states will sleep in a recliner initially at his brother's house. Pt needing MODA to stand from lower surfaces. Once pt on his feet CGA with FWW. OT- Balance Assessment Sitting Balance and Reactions Static Sitting Balance Ability Good Dynamic Sitting Balance Ability Good Standing Balance and Reactions Static Standing Balance Ability Fair M8 OT- IP Objective Assessments Start: 03/18/21 12:50 Freq: Status: Active Protocol: Document 03/18/21 10:12 [facility] (Rec: 03/18/21 13:18 [facility] [id number]) OT-Muscle Tone Assessment Muscle Tone WNL Yes M9 OT- IP Assessment and Plan Start: 03/18/21 12:50 Freq: Status: Active Protocol: Document 03/19/21 10:09 [facility] (Rec: 03/19/21 10:16 [facility] [id number]) OT Summary Assessment and Plan Potential Rehabilitation Potential Good Analytic Complexity at Evaluation Low Summary OT Impairments Pain,Balance,Functional Mobility,Dressing,Toileting, Bathing,Toilet Transfers, Shower Transfers,Activity Tolerance Progress Towards Goals Progressing Toward Goals Assessment Summary Pt still having pain which lmits his activity tolerance and need for MOD/MAX A for bed mobility needs. Pt states plans to sleep in a recliner and still wanting to go to his brother's house when medically stable. Goals Grooming Goal Independent Dressing Goal Independent Toileting Goal Independent Bathing Goal Independent Toilet Transfer Goal Independent Shower Transfer Goal Independent Patient/Caregiver Education Goal Demonstrate Post-Op Precautions Days to Meet Goals 9 Frequency of Treatment Frequency Of Treatment Once a Day Treatment Plan OT Treatment Plan ADL Training,Functional Cognition Training,Functional Mobility,Patient/Family Education,Discharge Planning Other Treatment Recommendations and Next shower Treatment Focus Discharge Recommendations OT Discharge Recommendations Home with 05/12 Assist Available Transportation Needs at Discharge Private Vehicle
--- NOTE | 2021-03-19 10:51 | PT.IPTN ---
Current Diagnoses Other mechanical complication of other internal orthopedic devices, implants and grafts, initial encounter (03/18/21) Surgery Performed Operation Date: 03/17/21 15:15 Actual Procedures p L5-S1 lumbar HWR, exploration of fusion, repeat laminectomy, reinsertion of hardware(Not Applicable) - David Smith MD Physical Therapy Treatment Note M2 PT-IP Current Condition Start: 03/18/21 13:15 Freq: NEEDED Status: Active Protocol: Document 03/18/21 11:30 [facility] (Rec: 03/18/21 13:25 AB [id number]) Physical Therapy Current Condition Current Condition Evaluation Date 03/18/21 Treatment Diagnosis s/p L3-4, L4-5, L5S1 TLIF; difficulty in walking Onset Date 03/17/21 M3 PT-IP Subjective Start: 03/18/21 13:15 Freq: NEEDED Status: Active Protocol: Document 03/19/21 10:24 [place] (Rec: 03/19/21 13:12 [place] [id number]) Subjective Physical Therapy Visit Type Type Treatment Note Visit Start Time 10:24 Visit Stop Time 10:51 Total Visit Minutes 27 Number of DELIVERY SUPERVISOR Visits 2 Physical Therapy Visit Comments Patient Comments pt is agreeable to do PT Therapy Pain Assessment Pain When Pain Assessed During Mobility Pain Present Pain Present Pain Reported M4 PT-IP Mobility and Gait Start: 03/18/21 13:15 Freq: NEEDED Status: Active Protocol: Document 03/19/21 10:24 [place] (Rec: 03/19/21 13:12 [place] [id number]) PT-Transfer Assessment Sit to and From Stand Sit to and from Stand Contact Guard Assistance,1 Person Assistance,Use of Upper Extremities Equipment Transfer Assistive Device Gait Belt,Front Wheeled Walker Orthotic/Prosthetic Devices or Brace: No Transfers Transfer Destination Chair,Toilet Transfer Technique ambulated using FWW Transfer Ability Level of Assist Contact Guard Assistance,1 Person Assistance,Use of Upper Extremities Comments Mobility Comments Pt in chair upon arrival from therapy and c/o pain all over. Agreeable to ambulation. Pt CGA for sit<>stand w/ FWW. Pt then ambulated ~30 ft around room w/ FWW CGA. Pt ambulated slowly and cautiously w/ decreased stride and foot clerance due to pain and weakness. Pt requested to use toilet, CGA for stand<>sit<> stand using hand rail. Pt then ambulated and transferred back to chair CGA and cues for sequencing. Reveiwed precautions. Pt left in chair w/ all needs in reach. Gait Assessment Gait Gait Assistance Required: Contact Guard Assist Distance (Feet) 35 Able to Maintain Weight Bearing Status Yes During Gait Assistive Devices Assistive Device Gait Belt,Front Wheeled Walker Orthotic/Prosthetic Devices or Brace: No Gait Deviations General Gait Pattern Decreased Stride Length, Decreased Feet Clearance Factors Limiting Gait Function Factors Limiting Gait Function Decreased Activity Tolerance, Decreased Strength,Limited Range of Motion,Pain,Poor Balance,Poor Safety Awareness Comments Gait Comments Please refer to mobility section for details. Stair Climbing Assessment Comments Stair Climbing Comments Not assessed PT-Balance Assessment Sitting Balance and Reactions Static Sitting Balance Ability Good Dynamic Sitting Balance Ability Good Standing Balance and Reactions Static Standing Balance Ability Fair Dynamic Standing Balance Ability Fair Device Used FWW M5 PT-IP Objective Assessments Start: 03/18/21 13:15 Freq: NEEDED Status: Active Protocol: Document 03/18/21 11:30 AB (Rec: 03/18/21 13:[address] [id number]) Orientation Orientation/Cognition Level of Alertness Alert Orientation Name,Place,Situation Language Function Ability Hard of Hearing Safety Awareness Decreased Safety Awareness Memory Description No Deficits Noted Gross Range of Motion Lower Extremity ROM Assessment Within Functional Limits Strength Lower Extremity Strength Assessment Within Functional Limits Coordination Assessment Gross Coordination Gross Coordination WNL Sensation Assessment Sensation Sensation Description Numbness Comments Sensation Comments R big toe numbness Muscle Tone Muscle Tone WNL Yes M6 PT-IP Treatment Start: 03/18/21 13:15 Freq: NEEDED Status: Active Protocol: Document 03/19/21 10:24 [place] (Rec: 03/19/21 13:12 KS [id number]) Physical Therapy Treatment Education Education Provided Precautions,Weight Bearing Status,Safety M7 PT-IP Assessment and Plan Start: 03/18/21 13:15 Freq: NEEDED Status: Active Protocol: Document 03/19/21 10:24 [place] (Rec: 03/19/21 13:12 [place] [id number]) PT Summary Assessment and Plan Potential Rehabilitation Potential Good Status of Condition at Evaluation Stable Summary Impairments Pain,ROM,Strength,Balance, Coordination,Sensation,Tone, Cognition,Bed Mobility, Transfers,Gait,Activity Tolerance Assessment Summary Pt CGA for transfers and ambulation this AM, but continues to c/o high level of pain and is frustrated that he is having this pain. Pt able to ambulate ~35 ft total w/ FWW CGA w/ decreased stride and foot clearance. Pt sit<> stand from toilet and chair CGA and cues. Will trial further ambulation and revisit bed mobility this PM to determine d/c. Pt will likely require caregiver training. Goals Bed Mobility Goal Independent Transfer Goal Independent,Front Wheeled Walker Gait Goal Independent,Front Wheel Walker Gait Distance 250 Other Goals up/down 1 step using fWW mod I Days to Meet Goals 5 Frequency of Treatment Frequency Of Treatment Twice a Day Treatment Plan Physical Therapy Treatment Plan Bed Mobility Training,Transfer Training,Gait Training, Therapeutic Exercise,Balance Retraining,Post Op Education, Discharge Planning,Hot or Cold Pack,Neuromuscular Re-ed, Coordination Retraining,Manual Therapy Other Recommendations and Next Treatment ambulation, stair climbing, Focus bed mobility Precautions Lumbar Precautions Log Roll,No Twisting,Limit Bending,Lifting Restriction of 10 lbs,Gait Belt above Incisional Area Recommendations To Nursing Amount of Assist Needed 1 Person Assist Discharge Recommendations PT Discharge Recommendations Home with Assistance Transportation Needs at Discharge Private Vehicle
--- NOTE | 2021-03-19 11:53 | PC.NURSE ---
Addendum entered by Pam Cardona R.N. 03/19/21 16:30: Patients temperature up to 100.3, tylenol given. He is resting in bed. Addendum entered by Pam Cardona R.N. 03/19/21 14:58: 1500 Patient up to the bathroom, had one episode of shaking per Trisha FISH HATCHERY SUPERINTENDENT. She states that he is not moving as well as yesterday. Started on po dilaudid and this does seem to help patient with discomfort, resting supine in bed now. Voiding per bathroom or commode. Addendum entered by Pam Cardona R.N. 03/19/21 12:04: Patient transferring with one person assist and walker, he refuses the gaitbelt. CMS wnl and ppx2. Original Note: Patient is somber and states that he is in pain, dilaudid given to him and he states that he is tolerating pain. Dressing will be changed this shift and patient has some drainage to his back. CMS wnl and ppx2.. He is resting now.
--- NOTE | 2021-03-19 14:34 | PT.IPTN ---
Current Diagnoses Other mechanical complication of other internal orthopedic devices, implants and grafts, initial encounter (03/18/21) Surgery Performed Operation Date: 03/17/21 15:15 Actual Procedures p L5-S1 lumbar HWR, exploration of fusion, repeat laminectomy, reinsertion of hardware(Not Applicable) - David Smith MD Physical Therapy Treatment Note M2 PT-IP Current Condition Start: 03/18/21 13:15 Freq: NEEDED Status: Active Protocol: Document 03/18/21 11:30 AB (Rec: 03/18/21 13:25 AB [id number]) Physical Therapy Current Condition Current Condition Evaluation Date 03/18/21 Treatment Diagnosis s/p L3-4, L4-5, L5S1 TLIF; difficulty in walking Onset Date 03/17/21 M3 PT-IP Subjective Start: 03/18/21 13:15 Freq: NEEDED Status: Active Protocol: Document 03/19/21 14:05 [place] (Rec: 03/19/21 15:46 KS [id number]) Subjective Physical Therapy Visit Type Type Treatment Note Visit Start Time 14:05 Visit Stop Time 14:34 Total Visit Minutes 29 Number of COGNOS LEAD Visits 3 Physical Therapy Visit Comments Patient Comments pt is agreeable to do PT Therapy Pain Assessment Pain When Pain Assessed During Mobility Pain Present Pain Present Pain Reported Location back Intensity 9 Scale Used Numeric (0 - 10) Description Sharp Pain Behaviors Facial Grimacing,Guarding, Holding Area,Wincing Pain Management Techniques Distraction,Modification of Treatment,Re-positioning M4 PT-IP Mobility and Gait Start: 03/18/21 13:15 Freq: NEEDED Status: Active Protocol: Document 03/19/21 14:05 [place] (Rec: 03/19/21 15:46 KS [id number]) PT-Bed Mobility Assessment Sit to Supine Sit to Supine Moderate Assistance,1 Person Assistance PT-Transfer Assessment Sit to and From Stand Sit to and from Stand Contact Guard Assistance,1 Person Assistance,Use of Upper Extremities Equipment Transfer Assistive Device Gait Belt,Front Wheeled Walker Orthotic/Prosthetic Devices or Brace: No Transfers Transfer Destination Chair,Toilet Transfer Technique ambulated using FWW Transfer Ability Level of Assist Contact Guard Assistance,1 Person Assistance,Use of Upper Extremities Comments Mobility Comments Pt in chair reporting 9/10 pain, RN arrived to administer pain medication. Pt tremor present during this tx. CGA for sit<>stand w/ FWW. Pt then ambulated ~10 ft from chair to toilet, CGA and hand rails for stand<>sit<>stand. Pt then ambulated ~15ft to other side of bed w/ FWW CGA. Pt ambulated slowly w/ decreased stride and foot clearance due to pain and weakness. CGA for stand<>sit, Mod A for sit<> sidelying and logroll back into bed. Pt left in bed w/ alarm on and all needs in reach. RN aware of tremor, pain, and shivering present. Gait Assessment Gait Gait Assistance Required: Contact Guard Assist Distance (Feet) 25 Able to Maintain Weight Bearing Status Yes During Gait Assistive Devices Assistive Device Gait Belt,Front Wheeled Walker Orthotic/Prosthetic Devices or Brace: No Gait Deviations General Gait Pattern Decreased Stride Length, Decreased Feet Clearance Factors Limiting Gait Function Factors Limiting Gait Function Decreased Activity Tolerance, Decreased Strength,Limited Range of Motion,Pain,Poor Balance,Poor Safety Awareness Comments Gait Comments Please refer to mobility section for details. Stair Climbing Assessment Comments Stair Climbing Comments Not assessed PT-Balance Assessment Sitting Balance and Reactions Static Sitting Balance Ability Good Dynamic Sitting Balance Ability Good Standing Balance and Reactions Static Standing Balance Ability Fair Dynamic Standing Balance Ability Fair Device Used FWW M5 PT-IP Objective Assessments Start: 03/18/21 13:15 Freq: NEEDED Status: Active Protocol: Document 03/18/21 11:30 AB (Rec: 03/18/21 13:25 AB [id number]) Orientation Orientation/Cognition Level of Alertness Alert Orientation Name,Place,Situation Language Function Ability Hard of Hearing Safety Awareness Decreased Safety Awareness Memory Description No Deficits Noted Gross Range of Motion Lower Extremity ROM Assessment Within Functional Limits Strength Lower Extremity Strength Assessment Within Functional Limits Coordination Assessment Gross Coordination Gross Coordination WNL Sensation Assessment Sensation Sensation Description Numbness Comments Sensation Comments R big toe numbness Muscle Tone Muscle Tone WNL Yes M6 PT-IP Treatment Start: 03/18/21 13:15 Freq: NEEDED Status: Active Protocol: Document 03/19/21 14:05 [place] (Rec: 03/19/21 15:46 KS [id number]) Physical Therapy Treatment Education Education Provided Precautions,Weight Bearing Status,Safety M7 PT-IP Assessment and Plan Start: 03/18/21 13:15 Freq: NEEDED Status: Active Protocol: Document 03/19/21 14:05 KS (Rec: 03/19/21 15:46 KS [id number]) PT Summary Assessment and Plan Potential Rehabilitation Potential Good Status of Condition at Evaluation Stable Summary Impairments Pain,ROM,Strength,Balance, Coordination,Sensation,Tone, Cognition,Bed Mobility, Transfers,Gait,Activity Tolerance Assessment Summary Pt CGA for sit<>stand transfers and ambulation w/ FWW, but required Mod A and cues to avoid twisting for bed mobility and logroll. Pt remains limited by high level of reported pain and weakness. Unsure of d/c plan, called pts brother to schedule caregiver training and left a message. If pts brother can appropriately assist pt, home with assistance will be suitable however if not pt may require SNF to improve functional independence. Goals Bed Mobility Goal Independent Transfer Goal Independent,Front Wheeled Walker Gait Goal Independent,Front Wheel Walker Gait Distance 250 Other Goals up/down 1 step using fWW mod I Days to Meet Goals 5 Frequency of Treatment Frequency Of Treatment Twice a Day Treatment Plan Physical Therapy Treatment Plan Bed Mobility Training,Transfer Training,Gait Training, Therapeutic Exercise,Balance Retraining,Post Op Education, Discharge Planning,Hot or Cold Pack,Neuromuscular Re-ed, Coordination Retraining,Manual Therapy Other Recommendations and Next Treatment ambulation, stair climbing, Focus bed mobility, caregiver training Precautions Lumbar Precautions Log Roll,No Twisting,Limit Bending,Lifting Restriction of 10 lbs,Gait Belt above Incisional Area Recommendations To Nursing Amount of Assist Needed 1 Person Assist Discharge Recommendations PT Discharge Recommendations Home with Assistance,SNF Rehab Transportation Needs at Discharge Private Vehicle
[2021-03-19] MEDS: EZETIMIBE 10 MG TABLET PO (21:24)
[2021-03-19] MEDS: SENNOSIDES 8.6 MG TABLET 17.2 MG PO (21:25)
[2021-03-19] MEDS: PROPRANOLOL ER 60 MG CAPSULE 120 MG PO (22:15)
[2021-03-20 00:22] VITALS: BP 101/56; PULSE 89; RESP 18; TEMP 37.6; O2SAT 93
[2021-03-20 00:26] VITALS: TEMP 37.7
[2021-03-20] MEDS: ACETAMINOPHEN 325 MG TABLET 650 MG PO (00:26)
[2021-03-20] MEDS: HYDROMORPHONE 2 MG TABLET PO ×2 (00:26→04:57)
[2021-03-20 00:55] VITALS: TEMP 36.2
[2021-03-20] MEDS: MAGNESIUM HYDROXIDE 30 ML UDC PO (04:57)
[2021-03-20 05:04] VITALS: BP 105/53; PULSE 73; RESP 18; TEMP 36.8; O2SAT 92
--- NOTE | 2021-03-20 06:26 | PC.NURSE ---
Dressing changed to lower back, oj intact. No new drainage, tolerated dressing change well.
[2021-03-20 07:45] VITALS: BP 116/64; PULSE 76; RESP 16; TEMP 36.7; O2SAT 94
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
[2021-03-20] MEDS: GABAPENTIN 300 MG CAPSULE PO (09:22)
--- NOTE | 2021-03-20 09:39 | CM.DPC ---
DCP Cont: Per Ortho PA, pt medically stable to d/c home today with no identified barriers to discharge. SW and OT met bedside with pt and he confirms he is agreeable to showering prior to d/c today with OT and also helped get pt's brother Deshawn on the phone and updated brother that pt has d/c orders and confirmed he will arrive around [id number] for CG training with pt and to transport to his house. SW and OT updated RN who will give him pain meds prior to shower and CG training. Plan: Patient to d/c home via brother POV after shower and CG training around 1130 today. SHERWIN Crowell
--- NOTE | 2021-03-20 11:11 | OT.IP.TRT ---
Current Diagnoses Other mechanical complication of other internal orthopedic devices, implants and grafts, initial encounter (03/18/21) Surgery Performed Operation Date: 03/17/21 15:15 Actual Procedures p L5-S1 lumbar HWR, exploration of fusion, repeat laminectomy, reinsertion of hardware(Not Applicable) - David Smith MD Occupational Therapy Treatment Note M2 OT-IP Current Condition Start: 03/18/21 12:50 Freq: Status: Active Protocol: Document 03/18/21 10:12 [facility] (Rec: 03/18/21 13:18 [facility] [id number]) Occupational Therapy Current Condition Current Condition Evaluation Date 03/18/21 Treatment Diagnosis S/p L3-S1 lumbar HWR, exp fusion, repeat laminectomy Diagnosis Onset Date 03/17/21 Post Operative Precautions Lumbar Precautions Log Roll,No Twisting,Limit Bending,Lifting Restriction of 10 lbs,Gait Belt above Incisional Area M3 OT- IP Subjective and Pain Start: 03/18/21 12:50 Freq: Status: Active Protocol: Document 03/20/21 11:55 [facility] (Rec: 03/20/21 12:13 [facility] [id number]) OT- Subjective Occupational Therapy Visit Type Type Treatment Note Visit Start Time 10:30 Visit Stop Time 11:11 Total Visit Minutes 41 Occupational Therapy Visit Comments Patient Comments Pt agreed to shower. Patient/Caregiver Goals TO go home. OT Pain Assessment Pain When Pain Assessed At Rest Pain Present Pain Present Pain Reported M4 OT- IP ADL's Start: 03/18/21 12:50 Freq: Status: Active Protocol: Document 03/20/21 11:55 [facility] (Rec: 03/20/21 12:13 [facility] [id number]) OT ADL-Dressing General Eval Upper Body Dressing Ability Moderate Assistance Lower Body Dressing Ability Moderate Assistance Areas Needing Assistance Underpants/Brief,Pants/Shorts, Socks Comments OT Dressing Comments Pt has all adaptive equipment at home to assist. Having to assist to get clothing over his feet. OT ADL-Toileting General Evaluation Toileting Ability Standby Assistance Comments OT Toileting Comments Pt able to urinate on the toilet. OT ADL-Bathing Bathing Type Bathing Type Shower General Evaluation Bathing Ability Moderate Assistance Areas Needing Assistance Wash/Dry Back,Wash/Dry Lower Extremities Devices Bathing Equipment Shower Chair with Arms M5 OT- IP IADL's Start: 03/18/21 12:50 Freq: Status: Active Protocol: Document 03/18/21 10:12 [facility] (Rec: 03/18/21 13:18 [facility] [id number]) OT-Instrumental Activities of Daily Living Home Safety Awareness Awareness of Need for Assistance at Home Good Awareness Ability to Problem Solve Emergency Able to Problem Solve Situations Home Safety Comments Pt to stay with his brother's house initially. M6 OT- IP Functional Cognition Start: 03/18/21 12:50 Freq: Status: Active Protocol: Document 03/20/21 11:55 [facility] (Rec: 03/20/21 12:13 [facility] [id number]) Cognitive Factors Limiting Selfcare Function Cognitive Comments Cognitive Assessment Comments Pt needing initial vc for his back precautions but then able to follow his back precautions appropriately. M7 OT- IP Mobility and Balance Start: 03/18/21 12:50 Freq: Status: Active Protocol: Document 03/20/21 11:55 [facility] (Rec: 03/20/21 12:13 [facility] [id number]) OT- Bed Mobility Assessment Rolling Type of Rolling Roll to Right Level of Assistance Standby Assistance OT-Transfer Assessment Sit to and From Stand Sit to and from Stand Contact Guard Assistance Transfers Transfer Ability Standby Assistance,Contact Guard Assistance Technique Transfer Destination Bed,Car,Chair,Shower Stall, Toilet Transfer Technique Stand Step Pivot Devices Transfer Assistive Devices Gait Belt,Front Wheeled Walker Comments Mobility Comments Pt SBA with grab bar and able to do bed mobility needs today and able to stand with SBA to CGA pending height of surfaces standing from. OT- Gait Assessment Comments Gait Ability Comments CGA/SBA with FWW OT- Balance Assessment Sitting Balance and Reactions Static Sitting Balance Ability Good Dynamic Sitting Balance Ability Good Standing Balance and Reactions Static Standing Balance Ability Good M8 OT- IP Objective Assessments Start: 03/18/21 12:50 Freq: Status: Active Protocol: Document 03/18/21 10:12 [facility] (Rec: 03/18/21 13:18 [facility] [id number]) OT-Muscle Tone Assessment Muscle Tone WNL Yes M9 OT- IP Assessment and Plan Start: 03/18/21 12:50 Freq: Status: Active Protocol: Document 03/20/21 11:55 [facility] (Rec: 03/20/21 12:13 [facility] [id number]) OT Summary Assessment and Plan Potential Rehabilitation Potential Good Analytic Complexity at Evaluation Low Summary OT Impairments Pain,Balance,Functional Mobility,Dressing,Toileting, Bathing,Toilet Transfers, Shower Transfers,Activity Tolerance Progress Towards Goals Progressing Toward Goals Assessment Summary Pt able to shower today and having less pain and looking to go to his brother's home today. Pt's brother will assist pt for his needs as needed. Goals Grooming Goal Independent Dressing Goal Independent Toileting Goal Independent Bathing Goal Independent Toilet Transfer Goal Independent Shower Transfer Goal Independent Patient/Caregiver Education Goal Demonstrate Post-Op Precautions Days to Meet Goals 7 Frequency of Treatment Frequency Of Treatment Once a Day Treatment Plan OT Treatment Plan ADL Training,Functional Cognition Training,Functional Mobility,Patient/Family Education,Discharge Planning Discharge Recommendations OT Discharge Recommendations Home with Assistance Transportation Needs at Discharge Private Vehicle
[2021-03-20 11:30] VITALS: BP 120/67; PULSE 84; RESP 16; TEMP 37.5; O2SAT 94
--- NOTE | 2021-03-20 12:37 | PT.IPTN ---
Current Diagnoses Other mechanical complication of other internal orthopedic devices, implants and grafts, initial encounter (03/18/21) Surgery Performed Operation Date: 03/17/21 15:15 Actual Procedures p L5-S1 lumbar HWR, exploration of fusion, repeat laminectomy, reinsertion of hardware(Not Applicable) - David Smith MD Physical Therapy Treatment Note M2 PT-IP Current Condition Start: 03/18/21 13:15 Freq: NEEDED Status: Active Protocol: Document 03/18/21 11:30 [facility] (Rec: 03/18/21 13:25 [facility] [id number]) Physical Therapy Current Condition Current Condition Evaluation Date 03/18/21 Treatment Diagnosis s/p L3-4, L4-5, L5S1 TLIF; difficulty in walking Onset Date 03/17/21 M3 PT-IP Subjective Start: 03/18/21 13:15 Freq: NEEDED Status: Active Protocol: Document 03/20/21 12:10 [facility] (Rec: 03/20/21 13:06 [facility] [id number]) Subjective Physical Therapy Visit Type Type Treatment Note Visit Start Time 12:10 Visit Stop Time 12:37 Total Visit Minutes 27 Number of BLOW PIT OPERATOR Visits 4 Physical Therapy Visit Comments Patient Comments pt is agreeable to do PT, pts brother present for caregiver training. Therapy Pain Assessment Pain When Pain Assessed During Mobility Pain Present Pain Present Pain Reported M4 PT-IP Mobility and Gait Start: 03/18/21 13:15 Freq: NEEDED Status: Active Protocol: Document 03/20/21 12:10 [facility] (Rec: 03/20/21 13:06 [facility] [id number]) PT-Bed Mobility Assessment Rolling Type of Rolling Log Rolling Level of Assist Contact Guard Assistance Supine to Sit Supine to Sit Contact Guard Assistance,1 Person Assistance Sit to Supine Sit to Supine Contact Guard Assistance,1 Person Assistance Scooting Scooting to Edge of Bed Standby Assistance PT-Transfer Assessment Sit to and From Stand Sit to and from Stand Contact Guard Assistance,1 Person Assistance,Use of Upper Extremities Equipment Transfer Assistive Device Gait Belt,Front Wheeled Walker Orthotic/Prosthetic Devices or Brace: No Transfers Transfer Destination Bed Transfer Technique ambulated using FWW Transfer Ability Level of Assist Contact Guard Assistance,1 Person Assistance,Use of Upper Extremities Comments Mobility Comments Pt in chair upon arrival from therapy. Completed caregiver training w/ pts brother Deshawn who pt will be staying with. Deshawn able to appropriately proved assist, gaitbelt, and cues to pt throughout treatment. Pt confirms he has FWW at home. Pt CGA for sit<> stand w/ FWW. Pt then ambulated ~40 ft around room w / FWW and SBA. CGA for stand<> sit w/ cues for hand placement . CGA and cues for logroll into and out of bed. Pts brother has previous back surgery and was able to provide cues to maintain straight spine. Pt able to recall 3/3 spinal precautions. Pt then sit<>stand w/ FWW SBA and ambulated additional 10 ft back to chair. Pt and brother feel they do not need to complete stair training, reminded pt to lead w/ stronger leg ascending. Pt left in chair w/ all needs in reach. Pt and his brother/ caregiver state they have no further questions and feel ready to return home. Gait Assessment Gait Gait Assistance Required: Standby Assistance,Contact Guard Assist Distance (Feet) 50 Able to Maintain Weight Bearing Status Yes During Gait Assistive Devices Assistive Device Gait Belt,Front Wheeled Walker Orthotic/Prosthetic Devices or Brace: No Gait Deviations General Gait Pattern Decreased Stride Length, Decreased Feet Clearance Factors Limiting Gait Function Factors Limiting Gait Function Decreased Activity Tolerance, Decreased Strength,Limited Range of Motion,Pain,Poor Balance,Poor Safety Awareness Comments Gait Comments Pt able to tolerate ~50 ft toal ambulation today w/ FWW and SBA to CGA. Pt ambulated slowly but showed improvements w/ FWW use and stride length. No LOB. Stair Climbing Assessment Comments Stair Climbing Comments Not assessed PT-Balance Assessment Sitting Balance and Reactions Static Sitting Balance Ability Good Dynamic Sitting Balance Ability Good Standing Balance and Reactions Static Standing Balance Ability Fair Dynamic Standing Balance Ability Fair Device Used FWW M5 PT-IP Objective Assessments Start: 03/18/21 13:15 Freq: NEEDED Status: Active Protocol: Document 03/18/21 11:30 [facility] (Rec: 03/18/21 13:25 [facility] [id number]) Orientation Orientation/Cognition Level of Alertness Alert Orientation Name,Place,Situation Language Function Ability Hard of Hearing Safety Awareness Decreased Safety Awareness Memory Description No Deficits Noted Gross Range of Motion Lower Extremity ROM Assessment Within Functional Limits Strength Lower Extremity Strength Assessment Within Functional Limits Coordination Assessment Gross Coordination Gross Coordination WNL Sensation Assessment Sensation Sensation Description Numbness Comments Sensation Comments R big toe numbness Muscle Tone Muscle Tone WNL Yes M6 PT-IP Treatment Start: 03/18/21 13:15 Freq: NEEDED Status: Active Protocol: Document 03/20/21 12:10 [facility] (Rec: 03/20/21 13:06 [facility] [id number]) Physical Therapy Treatment Education Education Provided Precautions,Weight Bearing Status,Safety M7 PT-IP Assessment and Plan Start: 03/18/21 13:15 Freq: NEEDED Status: Active Protocol: Document 03/20/21 12:10 [facility] (Rec: 03/20/21 13:06 [facility] [id number]) PT Summary Assessment and Plan Potential Rehabilitation Potential Good Status of Condition at Evaluation Stable Summary Impairments Pain,ROM,Strength,Balance, Coordination,Sensation,Tone, Cognition,Bed Mobility, Transfers,Gait,Activity Tolerance Assessment Summary Pt showed improvements today w / mobilty and tolerance for activity. Completed caregiver training w/ pts brother who was able to provide pt w/ appriate cues and assist. Pt able to recall 3/3 spinal precautions. CGA for bed mobility and transfers, SBA to CGA for ambulation w/ FWW. Pt needs min cues for hand placement and demonstrated good use overall of FWW. Pt and caregiver do not wish to complete stair training and explain step is more of a threshold step. Pt agrees to ascend w/ R leg. Pt will benefit from outpatient PT when appropriate to improve core stability, balance, and tolerance for activity and would benefit from further stair training but may go home w/ assistance from brother when medically stable. Goals Bed Mobility Goal Independent Transfer Goal Independent,Front Wheeled Walker Gait Goal Independent,Front Wheel Walker Gait Distance 250 Other Goals up/down 1 step using fWW mod I Days to Meet Goals 5 Frequency of Treatment Frequency Of Treatment Twice a Day Treatment Plan Physical Therapy Treatment Plan Bed Mobility Training,Transfer Training,Gait Training, Therapeutic Exercise,Balance Retraining,Post Op Education, Discharge Planning,Hot or Cold Pack,Neuromuscular Re-ed, Coordination Retraining,Manual Therapy Other Recommendations and Next Treatment ambulation, stair climbing, Focus bed mobility, caregiver training Precautions Lumbar Precautions Log Roll,No Twisting,Limit Bending,Lifting Restriction of 10 lbs,Gait Belt above Incisional Area Recommendations To Nursing Amount of Assist Needed 1 Person Assist Discharge Recommendations PT Discharge Recommendations Home with Assistance Transportation Needs at Discharge Private Vehicle
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
== END 2021-03-20 14:00 | disposition home or self-care (01) | DRG 460 ==
LOC: OR 15:05 → AC 15:06
PROVIDERS: Physician Assistant Medical; Admitting Provider Orthopaedic Surgery Orthopaedic Surgery of the Spine; PCP Family Medicine; Referring Provider Family Medicine; Visit Provider Orthopaedic Surgery Orthopaedic Surgery of the Spine
PROC: 0SP004Z Removal of Internal Fixation Device from Lumbar Vertebral Joint, Open Approach (ICD-10-PCS; principal; 2021-03-17 15:15)
DX: T84.038A Mechanical loosening of other internal prosthetic joint, initial encounter (principal); M96.0 Pseudarthrosis after fusion or arthrodesis; M54.16 Radiculopathy, lumbar region; T84.216A Breakdown (mechanical) of internal fixation device of vertebrae, initial encounter; I71.4 Abdominal aortic aneurysm, without rupture; Z96.698 Presence of other orthopedic joint implants; Z98.1 Arthrodesis status; Z20.822 Contact with and (suspected) exposure to COVID-19
CPT/HCPCS: 36415; 72100; 76000; 80048; 82962; 85014; 85018; 85025; 87635; 97110; 97116; 97161; 97165; 97530; 97535; C1776; C9803; G0378; C9290; J0171; J0330; J0690; J1100; J1170; J2405; J2704; J3010

== ENCOUNTER 2022-04-04 14:01 | Inpatient (IN) | payer MEDICARE, OTHER, SELFPAY ==
[2021-03-17 19:06] VITALS: BMI 34.2
[2022-03-30 10:46] VITALS: BMI 34.2
[2022-04-04] VITALS (9 sets, daily range): BP systolic 124–159; BP diastolic 73–94; PULSE 68–84; RESP 16–27; TEMP 36.1–36.7; O2SAT 91–95; BMI 35.6
[2022-04-04] MEDS: LACTATED RINGERS 1,000 ML 42 ML IV ×3 (15:09→20:04)
[2022-04-04 15:57] LABS: COVID19 -Nasal RAPID Negative (Negative)
--- NOTE | 2022-04-04 16:40 | SUR.PREOP ---
Pt sleeping soundly.
--- NOTE | 2022-04-04 17:38 | PM.PREOP ---
Pre-operative Note COVID-19 COVID-19 status: Negative Result date/Date tested (Pos, Neg/Pending): 04/03/22 Criteria for continued procedure: Expected advancement of disease process, Possibility delay results in more complex future surgery or treatment, Increased loss of function, Continuing or worsening of significant or severe pain, Deterioration of the patient's condition or overall health and Delay expected to result in less-positive ultimate med/surg outcome Interval Note History & Physical reviewed/Exam performed by Physician: Yes Changes to H&P: No
[2022-04-04] MEDS: CEFAZOLIN 2 GM/100 ML PREMIX 100 ML IV (19:00)
--- NOTE | 2022-04-04 19:00 | PM.OP.1 ---
Operative Date/Time/Diagnoses Date of procedure: 04/04/22 Time of procedure: 19:00 Pre-op diagnosis: 1. Lumbar painful hardware with loosening 2. Lumbar L5-S1 pseudoarthrosis. Post-op diagnosis: same Procedure & Clinicians Procedure: 1. L3-S1 posterior segmental instrumentation removal 2. L5-S1 hemilaminectomy and exploration of fusion 3. L5-S1 posterolateral fusion Same procedure as scheduled: Yes Indications: Mr. Goel is here for painful hardware in his lower lumbar post previous fusion surgery. He failed additional conservative care. Patient's CT scan shows loosened hardware in his S1 vertebral body. After discussing risks and benefits of treatment options, patient elected to proceed with hardware removal exploration of fusion and possible fusion in-situ. Surgeon: David Smith Vp Director Of Finance: Zulma Humphrey Click Yes if Unassisted: No Anesthesia Type: General Operative Notes Closure Type: primary Specimen(s): none sent Estimated Blood Loss (mL): 20 Blood products transfused: none Procedure in detail: Patient was seen in the preoperative area. Risks and benefits of the surgery was discussed with the patient. Informed consent was obtained from the patient and placed in the chart. Surgical site was marked. Patient was taken to the operative room. General anesthesia was administered. Prophylactic antibiotic was given to the patient less than 30 min before the incision was made. Patient was placed into a prone position on the Angel table. Patient's back was then prepped and draped in the sterile fashion. Time-out was performed at this time. Using patient's previous scar incision was made over the L3-S1 interval on the right side. Fascia was incised in line with skin incision. Patient's previously placed hardware over the L3-S1 level was identified by dissecting down to the level the hardware using a Bovie and a Oakley. The locking caps which was removed using globus screwdriver. The locking vee was then removed from the tulips of the pedicle screws using a Esther. The pedicle screws were then removed using the screwdriver. Total 3 screws were removed from the right side of patient's spine from L3-S1. The screws were found to have good purchase except in the right S1 pedicle which was grossly loose. A hemilaminectomy was performed by removing the epidural scar and residual lamina to explore the fusion mass. There was visible motion indicating L5-S1 pseudoarthrosis. DBM bone grafting was obtained and placed into the posterolateral gutter at L5-S1 level after decortication using a Oakley until cortical bone was exposed to perform a posterolateral fusion in-situ. At this time a mirror image incision was made on the left side. The fascia was incised in line with the skin incision. Patient's previously placed hardware on the left side was then removed in the same fashion as it was on the right side. Two pedicle screws along with fusion rodding locking cap was removed from the left side. The hardware was also found to have good purchase except in the S1 pedicle which was also found to be loose. After the planned hardware removal was completed, and confirmed with AP C-arm imaging, the wound was then irrigated with sterile normal saline and packed with Ray-Collins gauze for 3 min to accomplish hemostasis. After the gauze was removed the deep fascia was closed with #1 Vicryl suture. The subcutaneous layer was closed with 2-0 Vicryl. The skin was closed with skin oj. Patient tolerated the procedure well. There were no complications. The patient will be admitted to the inpatient hospital overnight for pain control and neurovascular monitoring. Patient will be discharged once cleared by Physical therapy. Complications: none Post-operative Condition: stable Disposition: PACU Plan for aftercare: Admit to inpatient hospital
[2022-04-04] MEDS: BUPIVACAINE 0.25% (PF) 30 ML, EPINEPHrine 0.3 MG INJ (19:20)
[2022-04-04] MEDS: BUPIVACAINE LIPOSOME 266 MG/20 ML VIAL INJ ×2 (19:22→19:23)
--- NOTE | 2022-04-04 19:57 | DI.RAD.S_ITS ---
PROCEDURE: XR LUMBAR SPINE 2-3V INDICATIONS: HARDWARE REMOVAL TECHNIQUE: 2 views of the lumbar spine were acquired. COMPARISON: [facility], CR, XR LUMBAR SPINE 2 OR 3 VIEWS, 12/31/2020, 14:31. [facility], CR, XR LUMBAR SPINE 2-3V, 03/17/2021, 17:00. FINDINGS: 2 intraoperative fluoroscopic views of the lower lumbar spine and sacrum demonstrate interval removal of the posterior surgical hardware at L5-S1 as well as the right pedicle screw at L3. A residual pedicle screw fragment is redemonstrated within the right aspect of L4. IMPRESSION: 1. Interval removal of surgical hardware in the lower lumbar spine as described. Recommend correlation with surgical report. Dictated by: Johny Magallon M.D. on 04/05/2022 at 2:46 Approved by: Johny Magallon M.D. on 04/05/2022 at 2:49
[2022-04-04] MEDS: hydrOXYzine pamoate 25 MG CAPSULE PO ×2 (20:33→21:42)
[2022-04-04] MEDS: HYDROCODONE/ACET 5/325 TABLET 1 TAB PO (20:33)
[2022-04-04] MEDS: ONDANSETRON 4 MG/2 ML INJ IV (20:33)
[2022-04-04] MEDS: SODIUM CHLORIDE 0.9% 1,000 ML 100 ML IV (21:38)
[2022-04-04] MEDS: TAMSULOSIN 0.4 MG CAPSULE PO (21:42)
[2022-04-04] MEDS: DOCUSATE 100 MG CAPSULE PO (21:42)
[2022-04-04] MEDS: SENNOSIDES 8.6 MG TABLET 17.2 MG PO (21:43)
[2022-04-05] MEDS: EZETIMIBE 10 MG TABLET PO (00:46)
[2022-04-05] MEDS: OXYCODONE IR 5 MG TABLET 10 MG PO ×5 (00:46→14:34)
[2022-04-05] MEDS: CEFAZOLIN 2 GM/100 ML PREMIX 100 ML IV ×2 (03:10→10:34)
[2022-04-05 03:56] VITALS: BP 134/76; PULSE 80; RESP 18; TEMP 36.2; O2SAT 94
[2022-04-05] MEDS: hydrOXYzine pamoate 25 MG CAPSULE PO ×3 (04:43→14:34)
[2022-04-05 08:05] VITALS: BP 130/60; PULSE 82; RESP 18; TEMP 37; O2SAT 94
[2022-04-05] MEDS: DOCUSATE 100 MG CAPSULE PO (08:17)
[2022-04-05] MEDS: MAGNESIUM OXIDE 400 MG TABLET PO (08:17)
[2022-04-05] MEDS: MAGNESIUM HYDROXIDE 30 ML UDC PO (08:17)
[2022-04-05] MEDS: TAMSULOSIN 0.4 MG CAPSULE PO (08:17)
[2022-04-05] MEDS: ACETAMINOPHEN 325 MG TABLET 650 MG PO ×2 (08:18→14:34)
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
[2022-04-05 11:36] LABS: Hematocrit 44.5 % (41-53); Hemoglobin 15.6 g/dL (13.5-17.5)
[2022-04-05 12:09] VITALS: BP 147/80; PULSE 114; RESP 17; TEMP 37; O2SAT 93
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
--- NOTE | 2022-04-05 13:07 | CM.DANOTE ---
DCP/Assessment: Reviewed chart. Patient is a 81yr old male admitted to I.. for elective laminectomy performed on 04-04-[address] Smith. Patient's PCP listed is Lazaro Molina. Primary payor is 1)Medicare 2)[employer]. Patient currently inpatient status. Met with patient this AM explained CM/SW role. Patient ambulating I in room. Patient reports that he believes that he will be able to d/c home today. Patient resides alone in [place] with family nearby. Patient denies any current d/c planning needs. P: Home when medically stable. KJS Discharge Planning/Care Management CM Discharge Assessment Start: 04/05/22 13:03 Freq: Status: Active Protocol: Document 04/05/22 13:04 KJS (Rec: 04/05/22 13:07 KJ [id number]) Discharge Planning Assessment Assigned Project Intern SHERWIN Alexandra Contact Information Deshawn Goel (brother) # Advance Directives? Yes Advance Directives on File No: Unsure of wherabouts History Provided By Patient,Medical Record Prior Living Arrangements House Household Members none Type of transporation used prior to Drives own vehicle admit Independent with ADL's Yes Is patient alert and oriented? Yes Caregiver for Another No Patient/Family Preference OP PT Therapy Barriers to Discharge No Discharge Plan Home Transportation Arrangement Brotheli Hess to transport at d/c Referrals Initiated None needed Whiteboard Updated in Patient Room with Yes name and ext. # of Project Intern Review Status In Process Next Review Type Continued Stay Review Pre-Anesthesia Assessment Start: 03/30/22 10:46 Freq: Status: Complete Protocol: Document 03/30/22 10:46 CAB (Rec: 03/30/22 11:31 CAB [id number]) Pre-Anesthesia Assessment PAC Comment Pt states that he has problems with dissolvable sutures - they do not dissolve Patient Information Reviewed Via Phone Assessment Assessment Completed With Patient Diagnostic Results BMP/CMP,CBC,EKG Comment Outside labs/ECG scanned, COVID screen-RAPID on admit Primary Care Provider Selam Seen Specialist in Last 12 Months Yes Specialist Seen Orthopedist,Urologist Primary Language Ghanaian Preferred Language Ghanaian Rn Home Care Required No Height 172.72 cm Weight 102.058 kg Body Mass Index (BMI) 34.2 Hearing Ability Hearing Impaired Visual Assist Glasses Dentition Type Teeth, Natural Present,Teeth, Missing Barriers to Learning Auditory Hx Anesthesia Reactions No: Untreated, no CPAP Hx Family Anesthesia Reaction No Hx Malignant Hyperthermia No Hx Blood Transfusions No Hx Blood Transfusion Reaction No Anesthesia Review Requested No alcohol intake current alcohol intake frequency a few times a week Smoking Status Never smoker Substance Use Type does not use Pain Present Pain Reported Musculoskeletal Symptoms Abnormal Gait,Back Pain, Difficulty Walking,Joint Pain, Numbness,Radiating Pain into Limb History of Falling (Recent or History of No ) Patient is completely paralyzed or No completely immobile Prosthesis or Orthotic Device Front Wheel Walker Mental Status Oriented to own ability Is patient on oxygen? No Does patient have GARCIA/SOB No Hx Sleep Apnea Yes: No CPAP CPAP/BIPAP use prescribed not used Currently Taking a Beta Odette Yes: Propranolol Hx Chest Pain No Hx SOB No Hx Syncope or Dizziness No Anti-Coagulant Therapy No Has a Batterboard Setter No: PCP follows for aortic aneurysm Cardiac Testing Yes: CT Angio 07/24/21 Hx Pacemaker/ICD No Pacemaker Rep Required? No Comment CT Angio ascending aorta 5cm, prior CT 4.9cm both reports scanned Diet Type At Home Regular Dysphagia No Gastrointestinal Symptoms Constipation Genitourinary Symptoms Dribbling Bladder Pattern Urgency Urinary Catheter Present No Hx Urinary Self Catheterization No Diabetes No Hx Drug Resistant Organism No Presence of External or Internal Medical Yes: lumbar, cervical, wrist, Devices eyes Have you had any close contact with No someone diagnosed with COVID-19? Received a COVID vaccine? Yes: J&J Marital Status Lives With none Current Living Arrangements House Number of Floors (Floors) One Floor Support System Friend(s),Sibling(s) Does the Patient Have Assistance After Yes: Pt will ask sister/ Surgery brother to assist with care at [place] Patient Discharge Plan Description Return Home Comment Pt advised possible same day or overnight length of stay per surgeon Feels Safe in Current Environment Yes Been Physically Hurt or Threatened By a No Person in Current Environment Do you have thoughts of harming yourself None or others? Are you currently considering suicide? No Do you have a plan to hurt yourself or No Plan others? Do You Have Any Spiritual Beliefs That No May Affect Your HC Choices? Do You Have Any Cultural Practices That No May Affect Your HC Choices? Who Can We Speak to About Patient's Care Family, friends Identifying Code for Release of Patient Declines to issue Information Health Care Proxy/Next of Kin Deshawn (brother) Health Care Proxy Emergency Contact Name Deshawn (brother) Emergency Contact Advance Directives? Yes Advance Directives on File No: Unsure of trevin Power of Mineralogy Professor Yes Power of Mineralogy Professor Name Deshawn eid) Power of Mineralogy Professor PAC Instructions Durable medical equipment, Medications to take/avoid, Nasal antibiotic,No ETOH/ petroleum product on skin DOS, NPO,Post-op transportation,Pre -surgical wash,Sturdy shoes/ comfortable clothes,Do not bring valuables and remove jewelry
[2022-04-05] MEDS: SENNOSIDES 8.6 MG TABLET PO (14:33)
== END 2022-04-05 16:04 | disposition home or self-care (01) | DRG 460 ==
PROVIDERS: Physician Assistant; Admitting Provider Orthopaedic Surgery Orthopaedic Surgery of the Spine; PCP Family Medicine; Referring Provider Orthopaedic Surgery Orthopaedic Surgery of the Spine; Visit Provider Orthopaedic Surgery Orthopaedic Surgery of the Spine
PROC: 0SP004Z Removal of Internal Fixation Device from Lumbar Vertebral Joint, Open Approach (ICD-10-PCS; principal; 2022-04-04 15:45)
DX: T84.038A Mechanical loosening of other internal prosthetic joint, initial encounter (principal); M96.0 Pseudarthrosis after fusion or arthrodesis; M96.1 Postlaminectomy syndrome, not elsewhere classified; Z20.822 Contact with and (suspected) exposure to COVID-19; Z98.1 Arthrodesis status
CPT/HCPCS: 36415; 72100; 76000; 82962; 85014; 85018; 87635; 97162; 97165; C9803; C9290; J0171; J0690; J1100; J1170; J2405; J2704; J3010